=== PATIENT | female | born 1955 | race Caucasian/White ===

== ENCOUNTER 2018-02-22 15:10 | Outpatient (CLI) | payer OTHER ==
--- NOTE | 2018-02-22 17:41 | RAD ---
FOUR VIEWS OF THE LEFT KNEE: 02/22/18 COMPARISON: None. HISTORY: Knee pain. FINDINGS: There is moderate medial compartment narrowing with associated subchondral sclerosis and osteophyte f ormation. There is mild lateral compartment narrowing. No knee joint effusion, displaced fracture, or evidence of dislocation is seen. There is enthesophyte formation at the insertion of the quadriceps tendon. There is moderate patellofemoral joint space narrowing. IMPRESSION: Multicompartment degenerative joint disease with no acute fracture or dislocation. POS: JANAE
== END 2018-02-22 15:11 | disposition home or self-care (01) ==
LOC: RAD-FRANK 15:10
PROVIDERS: ATTEND Nurse Practitioner Family
DX: M25.562 Pain in left knee (principal); M17.12 Unilateral primary osteoarthritis, left knee

== ENCOUNTER 2018-04-18 15:58 | Outpatient (CLI) | payer OTHER | END 2018-04-18 15:59 | disposition home or self-care (01) | LOC: BICMAMMO 15:58 | PROVIDERS: ATTEND Nurse Practitioner Family | DX: Z12.31 Encounter for screening mammogram for malignant neoplasm of breast (principal); N63.20 Unspecified lump in the left breast, unspecified quadrant; N63.10 Unspecified lump in the right breast, unspecified quadrant | CPT/HCPCS: 77063; 77067 ==

== ENCOUNTER 2019-05-09 12:30 | Inpatient (IN) | payer OTHER ==
[2019-05-09 12:38] VITALS: BMI 30.1
[2019-05-21] MEDS ORDERED: Tranexamic Acid 1,000 MG/10 ML VIAL ONE (05:56)
[2019-05-21] MEDS ORDERED: Sodium Chloride 0.9% 100 ML ONE (05:56)
[2019-05-21] MEDS ORDERED: Fentanyl 100 MCG/2 ML VIAL ONE ×2 (06:27→07:18)
[2019-05-21] MEDS ORDERED: Lidocaine 1% (PF) 30 ML VIAL ONE (06:27)
[2019-05-21] MEDS ORDERED: Midazolam HCl 2 mg/2 ml Vial ONE (06:27)
[2019-05-21] MEDS ORDERED: EPINEPHrine 1 MG/ML AMP ONE (06:49)
[2019-05-21] MEDS ORDERED: Bupivacaine 0.25% HCL 30 ML VIAL ONE ×2 (06:49→07:49)
[2019-05-21] MEDS ORDERED: traMADol HCl 50 MG TAB PO PRN ×2 (07:28→09:23)
[2019-05-21] MEDS ORDERED: Ondansetron PF 4 MG/2 ML Vial IVP PRN ×2 (07:28→09:23)
[2019-05-21] MEDS ORDERED: Zolpidem Tartrate 5 MG TAB PO PRN ×2 (07:28→09:23)
[2019-05-21] MEDS ORDERED: Ropivacaine HCl/PF 250 ML in Premix Bag 1 BAG NERVE BLCK SCH (07:28)
[2019-05-21] MEDS ORDERED: HYDROcodone/Acetaminophen 10/325 mg Tablet PO PRN ×3 (07:28→09:23)
[2019-05-21] MEDS ORDERED: Fentanyl 100 MCG/2 ML VIAL IV PRN (07:28)
[2019-05-21] MEDS ORDERED: Promethazine HCl 25 MG/ML VIAL IM PRN ×3 (07:28→09:23)
[2019-05-21] MEDS ORDERED: Promethazine HCl 25 MG/ML VIAL SLOW IVP PRN (07:58)
[2019-05-21] MEDS ORDERED: HYDROmorphone 2 MG/ML VIAL SLOW IVP PRN (07:58)
[2019-05-21] MEDS ORDERED: Meperidine HCl/PF 25 MG/ML VIAL SLOW IVP PRN (07:58)
[2019-05-21] MEDS ORDERED: Fentanyl 100 MCG/2 ML VIAL SLOW IVP PRN ×2 (09:23)
[2019-05-21] MEDS ORDERED: Acetaminophen 325 MG TAB PO PRN (09:23)
[2019-05-21] MEDS ORDERED: diphenhydrAMINE 25 MG CAP PO PRN (09:23)
--- NOTE | 2019-05-21 09:56 | RAD ---
Left knee 2 views: 05/21/2019 COMPARISON: 02/22/2018 HISTORY: Evaluate knee following arthroplasty FINDINGS: Postoperative gas and fluid noted anteriorly consistent with recent arthroplasty. There is postoperative change involving the posterior aspect of the left patella. Tibial and femoral components appear unremarkable with no evidence for hardware failure. IMPRESSION: Radiographic evidence of recent left total knee arthroplasty. No adverse features.
--- NOTE | 2019-05-21 11:16 | HP ---
HISTORY OF PRESENT ILLNESS: Ms. Nava is a 63-year-old female with left knee pain which has been present for greater than a year. The patient has started pain, pain with activities. Pain affects quality of life, pain would be as high as 6 to 10 /10. The patient desires to have pain relief. She has failed conservative measures, reduction in anti-inflammatories and injections. The patient desired to proceed with a left knee replacement. PAST MEDICAL HISTORY: Stroke, hypertension, depression, and anxiety. PAST SURGICAL HISTORY: Includes eye procedures 2009 and 2010. MEDICATIONS: Include 1. Ascorbic acid. 2. Aspirin. 3. Atorvastatin. 4. Buspirone. 5. Cholecalciferol. 6. Lexapro. 7. Etodolac. 8. Losartan. 9. Multivitamin. ALLERGIES: NO KNOWN DRUG ALLERGIES. SOCIAL HISTORY: The patient works for the [employer]. The patient is a nonsmoker and is , denies illicit drug. PHYSICAL EXAMINATION: GENERAL: Alert and oriented female, in no acute distress, resting comfortably in bed. EXTREMITIES: Patient's left lower extremity shows a small effusion. Mild varus. The patient has all ligaments intact, neurovascular intact. She is 0 to 120. X-ray show varus angulation osteophyte formation consistent with osteoarthritis. DIAGNOSIS: Left knee osteoarthritis. ASSESSMENT/PLAN: Discussed with the patient risks and benefits to include left total knee arthroplasty. Understood the risks and benefits include pain, scar, bleeding, infection, damage to vital structures, decreased range of motion and strength, fracture, failure of hardware, need for hardware removal, damage to vital structures, blood clots, organs, loss of life or limb. She understands these risks and benefits and elected to proceed. Taken to the operative suite today after a block. She received TXA, vancomycin, Ancef, I will call the OR. Job ID: [id number] [facility]
[2019-05-21] MEDS ORDERED: Ondansetron PF 4 MG/2 ML Vial ONE (11:34)
[2019-05-21] MEDS ORDERED: PROPOFOL 200 MG/20 ML VIAL ONE (11:34)
[2019-05-21] MEDS ORDERED: ePHEDrine/0.9% NaCl/PF SYRINGE 50 mg/10 ml ONE (11:34)
[2019-05-21] MEDS ORDERED: Metoclopramide HCl 10 MG/2 ML VIAL ONE (11:34)
[2019-05-21] MEDS ORDERED: Dexamethasone 20 MG/5 ML VIAL ONE (11:34)
[2019-05-21] MEDS ORDERED: Bupivacaine HCl 0.5%/Epinephrine 1:200,000/PF 30 ml Vial ONE (11:34)
[2019-05-21] MEDS ORDERED: Lidocaine 1% PF 5 ML VIAL ONE (11:34)
[2019-05-21] MEDS ORDERED: Ropivacaine 0.2% HCl/PF (40 MG/20 ML VIAL) ONE (11:34)
[2019-05-21] MEDS: Aspirin 81 mg Enteric Coated Tablet PO SCH ×2 (11:35→21:02)
[2019-05-21] MEDS: Sodium Chloride 0.9% 1,000 ML IV SCH ×2 (11:36→21:20)
--- NOTE | 2019-05-21 13:27 | PDOC.HOSPP ---
- Subjective Encounter Date: 05/21/19 Encounter Time: 11:30 Subjective: is ambulating with PT post op no sob or chest pain left knee is numb from nerve block, no pain - Objective Vital Signs & Weight: Vital Signs (12 hours) Temp Pulse Resp BP Pulse Ox 05/21/19 10:49 97 05/21/19 10:20 97.9 F 81 20 170/85 H 97 Weight Weight 170 lb I&O: 05/20/19 05/21/19 05/22/19 06:59 06:59 06:59 Output Total 250 Balance -250 Hospitalist ROS - Medication Medications: Active Medications Generic Name Dose Route Start Last Admin Trade Name Freq PRN Reason Stop Dose Admin Aspirin 81 mg 05/21/19 09:00 05/21/19 11:35 Ecotrin PO Not Given BID CHIKIS Sodium Chloride 1,000 mls @ 100 mls/hr 05/21/19 09:23 05/21/19 11:36 Normal Saline 0.9% IV Not Given .Q10H CHIKIS Sodium Chloride 10 ml 05/21/19 09:00 05/21/19 11:35 Flush - Normal Saline IVF Not Given Q12HR CHIKIS - Exam General Appearance: NAD, awake alert Eye: PERRL, anicteric sclera ENT: no oropharyngeal lesions, moist mucosa Neck: supple, no JVD Heart: RRR, no murmur Respiratory: no wheezes, no rales Gastrointestinal: soft, non-tender, non-distended, normal bowel sounds Extremities: no edema Extremities - other findings: left knee in dressing Neurological: cranial nerve grossly intact, no focal deficits Psychiatric: normal affect, A&O x 3 Hosp A/P (1) Status post total knee replacement, left Code(s): Z96.652 - PRESENCE OF LEFT ARTIFICIAL KNEE JOINT Status: Acute (2) Dyslipidemia Code(s): E78.5 - HYPERLIPIDEMIA, UNSPECIFIED Status: Chronic (3) Anxiety disorder Code(s): F41.9 - ANXIETY DISORDER, UNSPECIFIED Status: Chronic Qualifiers: Anxiety disorder type: generalized anxiety disorder Qualified Code(s): F41.1 - Generalized anxiety disorder (4) HTN (hypertension) Code(s): I10 - ESSENTIAL (PRIMARY) HYPERTENSION Status: Chronic Qualifiers: Hypertension type: essential hypertension Qualified Code(s): I10 - Essential (primary) hypertension - Plan post op left tkr is doing well continue asp bid, cozaar, lipitor, lexapro and buspar ropivacaine nr block, fentanyl, narco prn hemostable will f/u
[2019-05-21] MEDS: CEFAZOLIN 2 GM in Premix Bag 1 BAG IVPB SCH ×2 (15:31→23:33)
[2019-05-21] MEDS ORDERED: Vancomycin HCl 1 GM in Premix Bag 1 BAG IVPB SCH (18:00)
[2019-05-21] MEDS: Losartan 25 MG TAB PO SCH (21:01)
[2019-05-21] MEDS: busPIRone HCl 5 MG TAB PO SCH (21:02)
[2019-05-21] MEDS: Ascorbic Acid 500 mg Chewable Tablet PO SCH (21:02)
[2019-05-21] MEDS: Atorvastatin Calcium 20 MG TAB PO SCH (21:02)
[2019-05-22] MEDS: HYDROcodone/Acetaminophen 10/325 mg Tablet PO PRN ×3 (02:47→22:50)
[2019-05-22 05:42] LABS: Hemoglobin 11.5 g/dL (12.0-16.0); Mean Corpuscular HGB CONC 34.5 g/dL (32.0-36.0); Mean Corpuscular Hemoglobin 29.9 pg (27.0-31.0); Mean Corpuscular Volume 86.8 fL (78.0-98.0); Mean Platelet Volume 6.9 fL (7.4-10.4); Platelet Count 163 thou/uL (130-400); RBC Distribution Width 10.8 % (11.5-14.5); Red Blood Cell (RBC) Count 3.83 mill/uL (4.20-5.40); White Blood Cell (WBC) Count 11.5 thou/uL (4.8-10.8)
[2019-05-22] MEDS: Sodium Chloride 0.9% 1,000 ML IV SCH ×2 (06:45→14:36)
[2019-05-22] MEDS: busPIRone HCl 5 MG TAB PO SCH ×2 (08:51→20:10)
[2019-05-22] MEDS: Aspirin 81 mg Enteric Coated Tablet PO SCH ×2 (08:51→20:11)
[2019-05-22] MEDS: Senokot S 8.6-50 MG TAB PO SCH ×2 (08:52→20:11)
[2019-05-22] MEDS: Ferrous Gluconate 324 MG TAB PO SCH ×2 (08:52→20:10)
[2019-05-22] MEDS: Multivitamin W/ Minerals 1 TAB PO SCH (08:53)
[2019-05-22] MEDS: Escitalopram Oxalate 20 mg Tablet PO SCH (08:53)
[2019-05-22] MEDS: Ascorbic Acid 500 mg Chewable Tablet PO SCH ×2 (08:53→20:10)
[2019-05-22] MEDS: Ketorolac Tromethamine 30 MG/ML VIAL IVP PRN ×2 (10:29→20:09)
[2019-05-22] MEDS ORDERED: Acetaminophen 325 MG TAB PO PRN ×2 (10:30→20:38)
--- NOTE | 2019-05-22 12:03 | PDOC.HOSPP ---
- Subjective Encounter Date: 05/22/19 Encounter Time: 11:15 Subjective: no sob or chest pain, feels better pain is well controlled with meds says her block was disconnected overnight - Objective Vital Signs & Weight: Vital Signs (12 hours) Temp Pulse Resp BP Pulse Ox 05/22/19 07:50 98.3 F 72 22 H 131/54 L 98 05/22/19 04:00 98.6 F 75 16 146/69 H 95 05/22/19 00:30 98.6 F 75 18 155/74 H 98 Weight Weight 170 lb I&O: 05/21/19 05/22/19 05/23/19 06:59 06:59 06:59 Intake Total 2450 Output Total 2625 Balance -175 Result Diagrams: 05/22/19 05:16 Hospitalist ROS - Medication Medications: Active Medications Generic Name Dose Route Start Last Admin Trade Name Freq PRN Reason Stop Dose Admin Hydrocodone Bitart/Acetaminophen 2 tab 05/21/19 07:28 05/22/19 08:54 [place] 10/325 PO 2 tab Q4H PRN Administration PAIN (4-6) Ascorbic Acid 500 mg 05/21/19 21:00 05/22/19 08:53 Vitamin C PO 500 mg BID CHIKIS Administration Aspirin 81 mg 05/21/19 09:00 05/22/19 08:51 Ecotrin PO 81 mg BID CHIKIS Administration Atorvastatin Calcium 20 mg 05/21/19 21:00 05/21/19 21:02 Lipitor PO 20 mg HS CHIKIS Administration Buspirone HCl 15 mg 05/21/19 21:00 05/22/19 08:51 Buspar PO 15 mg BID CHIKIS Administration Cholecalciferol 1,000 units 05/21/19 21:00 05/22/19 08:52 Vitamin D3 PO 1,000 units BID CHIKIS Administration Escitalopram Oxalate 20 mg 05/22/19 09:00 05/22/19 08:53 Lexapro PO 20 mg DAILY CHIKIS Administration Ferrous Gluconate 324 mg 05/22/19 09:00 05/22/19 08:52 Fergon PO 324 mg BID CHIKIS Administration Sodium Chloride 1,000 mls @ 100 mls/hr 05/21/19 09:23 05/22/19 06:45 Normal Saline 0.9% IV Not Given .Q10H CHIKIS Iron/Minerals/Multivitamins 1 tab 05/22/19 09:00 05/22/19 08:53 Theragran M PO 1 tab DAILY CHIKIS Administration Ketorolac Tromethamine 30 mg 05/21/19 09:23 05/22/19 10:29 Toradol IVP 05/23/19 09:24 30 mg Q8HR PRN Administration Pain Losartan Potassium 50 mg 05/21/19 21:00 05/21/19 21:01 Cozaar PO 50 mg HS CHIKIS Administration Senna/Docusate Sodium 2 tab 05/22/19 09:00 05/22/19 08:52 Senokot S PO 2 tab BID CHIKIS Administration Sodium Chloride 10 ml 05/21/19 09:00 05/22/19 10:42 Flush - Normal Saline IVF 10 ml Q12HR CHIKIS Administration - Exam General Appearance: awake alert Eye: PERRL, anicteric sclera ENT: no oropharyngeal lesions, moist mucosa Neck: supple, no JVD Heart: RRR, no murmur Respiratory: no wheezes, no rales Gastrointestinal: soft, non-tender, non-distended, normal bowel sounds Extremities: no cyanosis, no edema Neurological: cranial nerve grossly intact, no focal deficits Psychiatric: normal affect, A&O x 3 Hosp A/P (1) Status post total knee replacement, left Code(s): Z96.652 - PRESENCE OF LEFT ARTIFICIAL KNEE JOINT Status: Acute (2) Dyslipidemia Code(s): E78.5 - HYPERLIPIDEMIA, UNSPECIFIED Status: Chronic (3) Anxiety disorder Code(s): F41.9 - ANXIETY DISORDER, UNSPECIFIED Status: Chronic Qualifiers: Anxiety disorder type: generalized anxiety disorder Qualified Code(s): F41.1 - Generalized anxiety disorder (4) HTN (hypertension) Code(s): I10 - ESSENTIAL (PRIMARY) HYPERTENSION Status: Chronic Qualifiers: Hypertension type: essential hypertension Qualified Code(s): I10 - Essential (primary) hypertension - Plan post op left tkr is doing well continue asp bid, cozaar, lipitor, lexapro and buspar ropivacaine nr block is held for now, fentanyl, narco prn hemostable dc plan per ortho adv
--- NOTE | 2019-05-22 13:28 | OP ---
DATE OF PROCEDURE: 05/21/2019 PREOPERATIVE DIAGNOSIS: Left knee osteoarthritis. POSTOPERATIVE DIAGNOSIS: Left knee osteoarthritis. PROCEDURE PERFORMED: Left total knee arthroplasty. OFFICE MANAGER EXECUTIVE ASSISTANT: Jessica Millan PA-C ANESTHESIA: The patient received a LMA with an adductor canal single shot sciatic. ESTIMATED BLOOD LOSS: 100 mL. TOURNIQUET TIME: 70 minutes at 300 mmHg. ANTIBIOTICS: Ancef 2 g, vancomycin 1 g, and TXA 1 g. IMPLANTS: The patient received a [place] [employer] size 4 CR femur, size 3 primary base plate, A29 patella, size X3 9-mm CS poly. COMPLICATIONS: None. INDICATIONS FOR PROCEDURE: Ms. Nava is a 63-year-old female with one year of pain, failed conservative measures. I discussed risks and benefits of left total knee arthroplasty to include pain, scar, bleeding, infection, failure of implant , continued pain despite surgical intervention, damage to vital structures, loss of life or limb. The patient understood the risks and benefits of procedure and elected to proceed. DESCRIPTION OF PROCEDURE: Time-out was performed designating the patient's left lower extremity as the operative site based on site, consents, and marking. After time-out, the patient's left lower extremity was prepped and draped in sterile fashion. Tourniquet was brought up and left up for a total of 70 minutes. Anterior approach, medial patellar arthrotomy exposing the everted the patella. We excised the fat pad, mapped out the distal femur, pinned the femur, mapped and cut 10, 7, 0 degrees varus/valgus, 4 degrees anterior slope. We then removed the bone. We placed our 3-degree external rotation guide in position, pinned into position. We felt that a 3 would be too much notching and 4 better fit the distal femur. Therefore, we cut for a 4, removed the bone, anterior and posterior chamfer cuts after we placed our jig on. We then placed a pickle fork. We had released the ACL and we had done our medial soft tissue release as we were opening up the knee. We then pinned the distal tibia jig to map the tibia and cut in 4 degrees slope, 0 degrees varus/valgus, 3 and 5, removed our bone spur. We removed our bone fragment. We cleaned our both medial and lateral gutters. We then placed the lamina white lead grinder, removed our medial and lateral menisci, decompressed the PCL, removed all the osteophytes in medial compartment as well as medial gutters to ensure good tracking. We then pinned the size 3 tray in line with tibial tubercle one third down the tibial spine, pinned on medial side of tibial tray placed poly and then we placed the femur in position, p. The patient's alignment was good. The patient had good overall tracking and good stability anterior-posterior. I liked final implant, cut patella from about 22 down to 11 or 12 mm. We then placed a A29 patella. Patella tracked well. We then removed all implants and washed. We drilled our lugs for our femur, cut our keel for tibia, removed the implants, washed out the joint, positioned for placement, cemented our tibial base plate, removed all excess cement around, placed a 9 poly, placed our femur, cemented my femur and removed all excess cement. We then brought the leg in extension, cemented our patella, removed excess cement. We flexed knee back up to look for any excess cement and washed out the joint. We then closed the arthrotomy with #2 Vicryl, #2 Stratafix, 0 Stratafix, 2-0 Stratafix, and glue. The patient will be admitted per [place] protocol postop and followed inhouse. Job ID: [id number] [facility]
[2019-05-22] MEDS: Losartan 25 MG TAB PO SCH (20:10)
[2019-05-22] MEDS: Atorvastatin Calcium 20 MG TAB PO SCH (20:10)
[2019-05-22] MEDS ORDERED: hydrALAZINE 20 MG/ML VIAL SLOW IVP SCH (20:45)
[2019-05-22 21:10] LABS: #Monocytes 0.8 thou/uL (0.11-0.59); #Neutrophils 5.2 thou/uL (1.40-6.50); %Basophils 0.3 % (0.0-1.0); %Eosinophils 0.3 % (0.0-10.0); %Lymphocytes 24.7 % (21.0-51.0); %Monocytes 9.7 % (0.0-10.0); %Neutrophils 65.1 % (42.0-75.0); Hemoglobin 10.9 g/dL (12.0-16.0); Mean Corpuscular HGB CONC 34.6 g/dL (32.0-36.0); Mean Corpuscular Hemoglobin 30.4 pg (27.0-31.0); Mean Corpuscular Volume 87.8 fL (78.0-98.0); Mean Platelet Volume 6.8 fL (7.4-10.4); Platelet Count 149 thou/uL (130-400); RBC Distribution Width 11.2 % (11.5-14.5); Red Blood Cell (RBC) Count 3.58 mill/uL (4.20-5.40); White Blood Cell (WBC) Count 7.9 thou/uL (4.8-10.8)
--- NOTE | 2019-05-22 21:17 | PDOC.EVN ---
Event Note - Event Note Event Note: Notified by RN, patient with sudden flushing and burning sensation to LUE, also with facial flushing. Vitals checked and BP 190s systolic. Her Temp 100.1. Patient denies any symptoms. No cough, sore throat, or runny nose. No chest pain or sob. Has not had any n/v, abdo pain or diarrhea. No urinary symptoms. I have come to bedside to examine patient. Redness and burning has resolved. Tylenol ordered however not given as temp improved on its own. BP also improved on its own, its 150s systolic. Benadryl ordered, patient declined since her symptoms have improved. Labs have been drawn. Awaiting results. Continue to monitor.
[2019-05-22 21:27] LABS: Lactic Acid 1.8 mmol/L (0.5-2.2)
[2019-05-22 21:34] LABS: ALT (SGPT) 15 U/L (8-55); AST (SGOT) 16 U/L (5-34); Albumin 3.7 g/dL (3.4-4.8); Alkaline Phosphatase 67 U/L (40-110); Anion Gap 11 mmol/L (10-20); BUN (Urea Nitrogen) 17 mg/dL (9.8-20.1); Bilirubin, Total 1.3 mg/dL (0.2-1.2); Calc. Creatinine Clearance 99 mL/min (70-130); Calcium 8.8 mg/dL (7.8-10.44); Carbon Dioxide 26 mmol/L (23-31); Chloride 104 mmol/L (98-107); Estimated GFR-MDRD 84; Globulin 2.5 g/dL (2.4-3.5); Glucose 136 mg/dL (80-115); Potassium 3.7 mmol/L (3.5-5.1); Protein, Total 6.2 g/dL (6.0-8.3); Sodium 137 mmol/L (136-145)
[2019-05-22 23:57] LABS: Bacteria/HPF None Seen HPF (None Seen); Bilirubin Negative (Negative); Blood, Urine Negative (Negative); Clarity Clear (Clear); Glucose, Urine (Dipstick) Normal (Negative); Leukocyte Negative Leu/uL (Negative); Nitrite Negative (Negative); Protein, Urine (Dipstick) Negative (Neg-Trace); RBC/HPF 0-3 HPF (0-3); Squamous Epithelial 0-3 HPF (0-3); Urobilinogen Normal mg/dL (Less than 2); WBC/HPF 0-3 HPF (0-3)
[2019-05-23 00:03] LABS: Urine Culture Reflex No No
[2019-05-23] MEDS: diphenhydrAMINE 25 MG CAP PO PRN ×2 (03:44→20:27)
[2019-05-23] MEDS: Sodium Chloride 0.9% 1,000 ML IV SCH ×3 (03:59→20:33)
[2019-05-23 05:57] LABS: Hemoglobin 10.6 g/dL (12.0-16.0); Mean Corpuscular HGB CONC 34.5 g/dL (32.0-36.0); Mean Corpuscular Hemoglobin 30.3 pg (27.0-31.0); Mean Platelet Volume 7.7 fL (7.4-10.4); Platelet Count 141 thou/uL (130-400); RBC Distribution Width 11.1 % (11.5-14.5); White Blood Cell (WBC) Count 8.1 thou/uL (4.8-10.8)
[2019-05-23] MEDS: Ketorolac Tromethamine 30 MG/ML VIAL IVP PRN (05:57)
[2019-05-23] MEDS: busPIRone HCl 5 MG TAB PO SCH ×2 (07:56→20:28)
[2019-05-23] MEDS: Senokot S 8.6-50 MG TAB PO SCH ×2 (07:56→20:27)
[2019-05-23] MEDS: Ferrous Gluconate 324 MG TAB PO SCH ×2 (07:57→20:27)
[2019-05-23] MEDS: Escitalopram Oxalate 20 mg Tablet PO SCH (07:57)
[2019-05-23] MEDS: Aspirin 81 mg Enteric Coated Tablet PO SCH ×2 (07:57→20:28)
[2019-05-23] MEDS: Ascorbic Acid 500 mg Chewable Tablet PO SCH ×2 (07:57→20:28)
[2019-05-23] MEDS: Multivitamin W/ Minerals 1 TAB PO SCH (07:57)
[2019-05-23] MEDS ORDERED: Cepastat Lozenges 1 LOZ PO PRN (08:05)
[2019-05-23] MEDS: traMADol HCl 50 MG TAB PO PRN ×2 (11:37→16:56)
--- NOTE | 2019-05-23 12:12 | PDOC.HOSPP ---
- Subjective Encounter Date: 05/23/19 Encounter Time: 09:00 Subjective: Feels better now, overnight events noted. No SOB, CP. Ambulating well with PT. - Objective Vital Signs & Weight: Vital Signs (12 hours) Temp Pulse Resp BP BP Pulse Ox 05/23/19 08:13 98.8 F 82 12 125/69 99 05/23/19 03:53 97.5 F L 79 16 143/65 H 95 Weight Admit Weight 170 lb Weight 170 lb I&O: 05/22/19 05/23/19 05/24/19 06:59 06:59 06:59 Intake Total 2450 1720 Output Total 2625 Balance -175 1720 Result Diagrams: 05/23/19 04:55 05/22/19 20:59 Hospitalist ROS - Medication Medications: Active Medications Generic Name Dose Route Start Last Admin Trade Name Freq PRN Reason Stop Dose Admin Hydrocodone Bitart/Acetaminophen 2 tab 05/21/19 07:28 05/22/19 22:50 [place] 10/325 PO 2 tab Q4H PRN Administration PAIN (4-6) Ascorbic Acid 500 mg 05/21/19 21:00 05/23/19 07:57 Vitamin C PO 500 mg BID CHIKIS Administration Aspirin 81 mg 05/21/19 09:00 05/23/19 07:57 Ecotrin PO 81 mg BID CHIKIS Administration Atorvastatin Calcium 20 mg 05/21/19 21:00 05/22/19 20:10 Lipitor PO 20 mg HS CHIKIS Administration Buspirone HCl 15 mg 05/21/19 21:00 05/23/19 07:56 Buspar PO 15 mg BID CHIKIS Administration Cholecalciferol 1,000 units 05/21/19 21:00 05/23/19 07:58 Vitamin D3 PO 1,000 units BID CHIKIS Administration Diphenhydramine HCl 25 mg 05/22/19 20:35 05/23/19 03:44 Benadryl PO 25 mg Q6H PRN Administration Itching & Insomnia Escitalopram Oxalate 20 mg 05/22/19 09:00 05/23/19 07:57 Lexapro PO 20 mg DAILY CHIKIS Administration Ferrous Gluconate 324 mg 05/22/19 09:00 05/23/19 07:57 Fergon PO 324 mg BID CHIKIS Administration Sodium Chloride 1,000 mls @ 100 mls/hr 05/21/19 09:23 05/23/19 03:59 Normal Saline 0.9% IV Not Given .Q10H CHIKIS Iron/Minerals/Multivitamins 1 tab 05/22/19 09:00 05/23/19 07:57 Theragran M PO 1 tab DAILY CHIKIS Administration Losartan Potassium 50 mg 05/21/19 21:00 05/22/19 20:10 Cozaar PO 50 mg HS CHIKIS Administration Senna/Docusate Sodium 2 tab 05/22/19 09:00 05/23/19 07:56 Senokot S PO 2 tab BID CHIKIS Administration Sodium Chloride 10 ml 05/21/19 09:00 05/22/19 20:12 Flush - Normal Saline IVF 10 ml Q12HR CHIKIS Administration Tramadol HCl 100 mg 05/21/19 07:28 05/23/19 11:37 Ultram PO 100 mg Q6H PRN Administration Moderate Pain 4-6 Zolpidem Tartrate 5 mg 05/21/19 09:23 05/22/19 21:13 Ambien PO 5 mg HSPRN PRN Administration Insomnia - Exam General Appearance: NAD, awake alert Eye: PERRL, anicteric sclera ENT: no oropharyngeal lesions, moist mucosa Neck: supple, no JVD Heart: RRR, no murmur Respiratory: no wheezes, no rales Gastrointestinal: soft, non-distended, normal bowel sounds Extremities - other findings: L knee post op changes Neurological: cranial nerve grossly intact, no focal deficits Psychiatric: normal affect, A&O x 3 Hosp A/P (1) Status post total knee replacement, left Code(s): Z96.652 - PRESENCE OF LEFT ARTIFICIAL KNEE JOINT Status: Acute (2) Dyslipidemia Code(s): E78.5 - HYPERLIPIDEMIA, UNSPECIFIED Status: Chronic (3) Anxiety disorder Code(s): F41.9 - ANXIETY DISORDER, UNSPECIFIED Status: Chronic Qualifiers: Anxiety disorder type: generalized anxiety disorder Qualified Code(s): F41.1 - Generalized anxiety disorder (4) HTN (hypertension) Code(s): I10 - ESSENTIAL (PRIMARY) HYPERTENSION Status: Chronic Qualifiers: Hypertension type: essential hypertension Qualified Code(s): I10 - Essential (primary) hypertension - Plan post op left tkr is doing well continue asp bid, cozaar, lipitor, lexapro and buspar fentanyl, norco prn hemostable dc plan per ortho adv
[2019-05-23] MEDS: Losartan 25 MG TAB PO SCH (20:27)
[2019-05-23] MEDS: Atorvastatin Calcium 20 MG TAB PO SCH (20:27)
[2019-05-23] MEDS: HYDROcodone/Acetaminophen 10/325 mg Tablet PO PRN (20:29)
[2019-05-24 05:19] LABS: Hemoglobin 10.8 g/dL (12.0-16.0); Mean Corpuscular HGB CONC 34.2 g/dL (32.0-36.0); Mean Corpuscular Hemoglobin 29.8 pg (27.0-31.0); Mean Corpuscular Volume 87.3 fL (78.0-98.0); Mean Platelet Volume 6.9 fL (7.4-10.4); Platelet Count 139 thou/uL (130-400); RBC Distribution Width 10.8 % (11.5-14.5); Red Blood Cell (RBC) Count 3.63 mill/uL (4.20-5.40); White Blood Cell (WBC) Count 6.8 thou/uL (4.8-10.8)
[2019-05-24] MEDS: Sodium Chloride 0.9% 1,000 ML IV SCH (05:28)
[2019-05-24] MEDS: traMADol HCl 50 MG TAB PO PRN (05:55)
[2019-05-24 08:04] VITALS: BP 145/85; TEMP 99.9
[2019-05-24] MEDS: busPIRone HCl 5 MG TAB PO SCH (08:36)
[2019-05-24] MEDS: Escitalopram Oxalate 20 mg Tablet PO SCH (08:36)
[2019-05-24] MEDS: Ferrous Gluconate 324 MG TAB PO SCH (08:36)
[2019-05-24] MEDS: Aspirin 81 mg Enteric Coated Tablet PO SCH (08:36)
[2019-05-24] MEDS: Ascorbic Acid 500 mg Chewable Tablet PO SCH (08:36)
[2019-05-24] MEDS: Multivitamin W/ Minerals 1 TAB PO SCH (08:37)
[2019-05-24] MEDS: Senokot S 8.6-50 MG TAB PO SCH (08:37)
--- NOTE | 2019-05-24 16:05 | DIS ---
DATE OF ADMISSION: 05/21/2019 DATE OF DISCHARGE: 05/24/2019 DISCHARGE DISPOSITION: Home. PRIMARY DISCHARGE DIAGNOSIS: The patient is status post left total knee arthroplasty done by Dr. Dempsey. SECONDARY DISCHARGE DIAGNOSES: Anxiety disorder, mood disorder, dyslipidemia, and hypertension. PROCEDURES DONE DURING HOSPITALIZATION: The patient has had left total knee arthroplasty done on 05/21/[address] Dempsey. Blood cultures x2, no growth. Hemoglobin and hematocrit of 10.8 and 31, platelet count 139 on the day of discharge. BUN 17 and creatinine 0.7. DISCHARGE PLAN: The patient to follow up with her primary care physician, Ms. Rox Castro in 1 week. The patient is going to outpatient rehab in [facility] from tomorrow with her daughter. She needs to follow up with Dr. Dempsey on 2019 at 1:45 p.m. BRIEF COURSE DURING HOSPITALIZATION: The patient initially got electively admitted for left total knee arthroplasty. This was done on 05/21/2019. Postop, hospitalist group was consulted for comanagement of medical issues. She has remained hemodynamically stable and recuperating well postprocedure. She is ambulating well as well and is participating actively with physical therapy. She is being discharged home by Dr. Dempsey. She has outpatient rehab arranged in [facility], where she plans to stay with her daughter. Please note, I have seen and examined the patient on the day of discharge. Job ID: [id number] [facility]
== END 2019-05-24 11:45 | disposition home or self-care (01) | DRG 470 ==
LOC: SURG A 05-21 05:35 → SJJU 05-21 10:06
PROVIDERS: ADMIT Orthopaedic Surgery; ATTEND Orthopaedic Surgery
PROC: 0SRD0J9 Replacement of Left Knee Joint with Synthetic Substitute, Cemented, Open Approach (ICD-10-PCS; principal; 2019-05-21)
DX: M17.12 Unilateral primary osteoarthritis, left knee (principal); I10 Essential (primary) hypertension; F32.9 Major depressive disorder, single episode, unspecified; F41.9 Anxiety disorder, unspecified; E78.5 Hyperlipidemia, unspecified; H40.9 Unspecified glaucoma; Z86.73 Personal history of transient ischemic attack (TIA), and cerebral infarction without residual deficits; Z79.82 Long term (current) use of aspirin; Z79.899 Other long term (current) drug therapy
CPT/HCPCS: 36415; 80053; 81001; 83605; 85027; 87040; C1713; C1776; J0171; J0670; J0690; J1100; J1885; J2001; J2250; J2405; J2704; J2765; J2795; J3010; J3370; J3490; Q0163; S0020

== ENCOUNTER 2020-04-30 09:11 | Outpatient (CLI) | payer MEDICARE ==
--- NOTE | 2020-04-30 09:47 | RAD ---
LUMBAR SPINE SERIES 3 VIEWS: HISTORY: Low back pain. FINDINGS: Vertebral bodies are normal in height. Degenerative osteophytes are seen without disk narrowing. Pe dicles are intact. Degenerative facet changes are present. IMPRESSION: Arthritic changes of the spine. No acute findings. POS: AH
== END 2020-04-30 09:12 | disposition home or self-care (01) ==
LOC: RAD-FRANK 09:11
PROVIDERS: ATTEND Nurse Practitioner Family
DX: M54.5 Low back pain (principal); M46.96 Unspecified inflammatory spondylopathy, lumbar region
CPT/HCPCS: 72100

== ENCOUNTER 2021-01-14 08:49 | Outpatient (CLI) | payer MEDICARE | END 2021-01-14 08:50 | disposition home or self-care (01) | LOC: BICMRI 08:49 | PROVIDERS: ATTEND Psychiatry & Neurology Neurology | DX: I66.29 Occlusion and stenosis of unspecified posterior cerebral artery (principal); G93.9 Disorder of brain, unspecified | CPT/HCPCS: 70553; 82565 ==

== ENCOUNTER 2021-09-08 14:33 | Outpatient (CLI) | payer MEDICARE | END 2021-09-08 14:34 | disposition home or self-care (01) | LOC: RAD-FRANK 14:33 | PROVIDERS: ATTEND Nurse Practitioner Family | DX: M54.6 Pain in thoracic spine (principal); M47.814 Spondylosis without myelopathy or radiculopathy, thoracic region | CPT/HCPCS: 72070 ==

== ENCOUNTER 2023-10-27 11:02 | Emergency (ER) | payer MEDICARE | END 2023-10-27 12:57 | disposition home or self-care (01) | LOC: ERS 11:02 | DX: L03.115 Cellulitis of right lower limb (principal); Z86.73 Personal history of transient ischemic attack (TIA), and cerebral infarction without residual deficits; Z79.82 Long term (current) use of aspirin; Z79.899 Other long term (current) drug therapy ==

== ENCOUNTER 2025-01-08 08:28 | Emergency (ER) | payer BC, MEDICARE | END 2025-01-08 09:57 | disposition home or self-care (01) | LOC: ERS 08:28 | DX: M25.572 Pain in left ankle and joints of left foot (principal); I10 Essential (primary) hypertension; W10.9XXA Fall (on) (from) unspecified stairs and steps, initial encounter | CPT/HCPCS: 99283 ==